=== PATIENT | female | born 1990 | race Caucasian/White ===

== ENCOUNTER 2017-02-08 14:53 | Emergency (ER) | payer MEDICAID ==
[~2017-02-08] VITALS: Ht 160 cm; Wt 59.4 kg
[2017-02-08 15:05] VITALS: BP_SYST 112
== END 2017-02-08 16:09 | disposition home or self-care (01) ==
LOC: SED 14:53
DX: S63.501A Unspecified sprain of right wrist, initial encounter (principal); X58.XXXA Exposure to other specified factors, initial encounter; Y93.89 Activity, other specified; Y92.89 Other specified places as the place of occurrence of the external cause; Y99.8 Other external cause status
CPT/HCPCS: 99284

== ENCOUNTER 2018-02-01 17:02 | Emergency (ER) | payer MEDICAID ==
[~2018-02-01] VITALS: Ht 160 cm; Wt 60.8 kg
[2018-02-01 17:08] VITALS: BP_SYST 149
[2018-02-01 18:57] VITALS: BP_SYST 138
== END 2018-02-01 18:57 | disposition home or self-care (01) ==
LOC: SED 17:02
DX: G50.0 Trigeminal neuralgia (principal); R03.0 Elevated blood-pressure reading, without diagnosis of hypertension; Z90.89 Acquired absence of other organs
CPT/HCPCS: 81025; 99282